=== PATIENT | female | born 1990 | race Caucasian/White ===

== ENCOUNTER 2018-03-08 09:10 | Emergency (ER) | payer OTHER ==
[~2018-03-08] VITALS: Ht 165.1 cm; Wt 68.5 kg
[~2018-03-08 09:10] MED LIST: ANAPROX DS550 MG PO; BENTYL10 MG PO; CELEXA10 MG PO; CELEXA20 MG PO; CIPROFLOXACIN500 MG PO; DURICEF500 MG PO; FLEXERIL10 MG PO; HYDROCODONE BIT1 T11 PO; IBUPROFEN 30 M800 MG PO; NAPROSYN500 MG PO; PNV-SELECT1 TAB PO; PRENATAL1 TA1 PO; SERTRALINE HYDR50 MG PO; ULTRAM50 MG PO; WELLBUTRIN100 MG PO; ZOFRAN ODT4 MG SL
[2018-03-08] MEDS ORDERED: CLARITIN10 MG PO (09:25)
[2018-03-08] MEDS ORDERED: PREDNISONE10 MG PO (09:25)
[2018-03-08] MEDS ORDERED: FLONASE ALLERG9.9 ML NAS (09:25)
[2018-03-08] MEDS ORDERED: OMNICEF300 MG PO (09:53)
== END 2018-03-08 10:40 | disposition home or self-care (01) ==
LOC: ED 09:10
DX: J02.9 Acute pharyngitis, unspecified (principal); R03.0 Elevated blood-pressure reading, without diagnosis of hypertension; Z88.0 Allergy status to penicillin

== ENCOUNTER 2019-01-14 13:03 | Emergency (ER) | payer SELFPAY ==
[~2019-01-14] VITALS: Ht 165.1 cm; Wt 75.3 kg
[~2019-01-14 13:03] MED LIST changes: +CLARITIN10 MG PO; +FLONASE ALLERG9.9 ML NAS; +OMNICEF300 MG PO; +PREDNISONE10 MG PO
[2019-01-14 13:33] LABS: BILIRUBIN NEGATIVE (NEGATIVE); BLOOD NEGATIVE (NEGATIVE); CLARITY CLEAR (CLEAR); COLOR YELLOW (YELLOW); GLUCOSE NEGATIVE (NEGATIVE); KETONE NEGATIVE (NEGATIVE); LEUKO ESTERASE 1+ (NEGATIVE); NITRITE NEGATIVE (NEGATIVE); PH 7.5 (5.0-9.0); SPECIFIC GRAVITY <= 1.005 (1.005-1.030); UROBILINOGEN 0.2 E.U./dl (0.2-1.0)
[2019-01-14 13:37] LABS: BASO % 0.5 % (0.0-1.0); EOS # 0.1 10*3/uL (0.0-0.4); EOS % 0.9 % (1.0-4.0); HEMATOCRIT 42.6 % (37.0-47.0); HEMOGLOBIN 14.2 g/dl (12.0-16.0); LYMPH # 1.3 10*3/uL (1.3-4.4); LYMPH % 14.6 % (27.0-41.0); MEAN CELL VOLUME 90.4 fl (81.0-99.0); MEAN CORPUSCULAR HGB 30.1 pg (27.0-31.0); MEAN CORPUSCULAR HGB CONC 33.3 g/dl (33.0-37.0); MEAN PLATELET VOLUME 9.7 fl (9.6-12.3); MONO # 0.5 10*3/uL (0.1-1.0); MONO % 6.1 % (3.0-9.0); NEUT # 6.8 10*3/uL (2.3-7.9); NEUT % 77.7 % (47.0-73.0); PLATELET COUNT AUTOMATED 317 10*3/uL (130-400); RED BLOOD COUNT 4.71 10*6/uL (4.10-5.10); RED CELL DISTRI WIDTH 13.3 % (0-14.5); WHITE BLOOD COUNT 8.7 10*3/uL (4.8-10.8)
[2019-01-14 13:51] LABS: ALBUMIN 4.2 gm/dl (3.1-4.5); ALKALINE PHOSPHATASE 182 U/L (45-117); BUN 7 mg/dl (7-24); CHLORIDE 105 mmol/L (98-107); CREATININE 0.89 mg/dL (0.55-1.02); POTASSIUM 3.7 mmol/L (3.5-5.1); SGOT/AST 34 IU/L (3-35); SGPT/ALT 66 U/L (12-78); SODIUM 139 mmol/L (136-145); TOTAL PROTEIN 7.6 gm/dL (6.4-8.2)
[2019-01-14 13:53] LABS: BETA-HCG, QUANT < 1.0 mIU/mL (1-3)
[2019-01-14 14:03] LABS: BACTERIA 1+; WBC 21-30 wbc/hpf (0-5)
[2019-01-14] MEDS ORDERED: MACROBID100 M1 PO (16:35)
[2019-01-14] MEDS ORDERED: DIFLUCAN150 MG PO (16:35)
== END 2019-01-14 16:57 | disposition home or self-care (01) ==
LOC: ED 13:03
PROVIDERS: Nurse Practitioner Family
DX: N39.0 Urinary tract infection, site not specified (principal); N93.8 Other specified abnormal uterine and vaginal bleeding; B37.3 Candidiasis of vulva and vagina; Z88.0 Allergy status to penicillin; Z88.2 Allergy status to sulfonamides

== ENCOUNTER 2019-06-03 00:10 | Inpatient (IN) | payer OTHER, MEDICAID ==
[2019-06-03] VITALS (7 sets, daily range): BP systolic 114–132; BP diastolic 56–88
[~2019-06-03] VITALS: Ht 167.6 cm; Wt 72.3 kg
[~2019-06-03 00:10] MED LIST changes: +DIFLUCAN150 MG PO; +MACROBID100 M1 PO
[2019-06-03 01:04] LABS: BASO # 0.1 10*3/uL (0.0-0.1); BASO % 0.5 % (0.0-1.0); EOS # 0.2 10*3/uL (0.0-0.4); HEMATOCRIT 42.6 % (37.0-47.0); HEMOGLOBIN 14.2 g/dl (12.0-16.0); LYMPH % 10.3 % (27.0-41.0); MEAN CELL VOLUME 92.8 fl (81.0-99.0); MEAN CORPUSCULAR HGB 30.9 pg (27.0-31.0); MEAN CORPUSCULAR HGB CONC 33.3 g/dl (33.0-37.0); MEAN PLATELET VOLUME 10.4 fl (9.6-12.3); MONO # 0.4 10*3/uL (0.1-1.0); MONO % 2.2 % (3.0-9.0); NEUT # 16.7 10*3/uL (2.3-7.9); NEUT % 85.3 % (47.0-73.0); PLATELET COUNT AUTOMATED 447 10*3/uL (130-400); RED BLOOD COUNT 4.59 10*6/uL (4.10-5.10); WHITE BLOOD COUNT 19.6 10*3/uL (4.8-10.8)
[2019-06-03 01:21] LABS: ALBUMIN 4.1 gm/dl (3.1-4.5); ALKALINE PHOSPHATASE 129 U/L (45-117); BUN 10 mg/dl (7-24); CHLORIDE 103 mmol/L (98-107); POTASSIUM 3.7 mmol/L (3.5-5.1); SGOT/AST 16 IU/L (3-35); SGPT/ALT 18 U/L (12-78); SODIUM 136 mmol/L (136-145); TOTAL PROTEIN 7.8 gm/dL (6.4-8.2)
[2019-06-03 04:22] LABS: BILIRUBIN NEGATIVE (NEGATIVE); BLOOD 3+ (NEGATIVE); CLARITY SL CLOUDY (CLEAR); COLOR YELLOW (YELLOW); GLUCOSE NEGATIVE (NEGATIVE); KETONE 2+ (NEGATIVE); LEUKO ESTERASE 3+ (NEGATIVE); NITRITE NEGATIVE (NEGATIVE); SPECIFIC GRAVITY <= 1.005 (1.005-1.030); UROBILINOGEN 0.2 E.U./dl (0.2-1.0)
[2019-06-03 04:29] LABS: EPITHELIAL CELLS 25-30
[2019-06-03 04:30] LABS: BACTERIA 1+; RBC 21-30 rbc/hpf (0-2); WBC 21-30 wbc/hpf (0-5)
[2019-06-03 04:32] LABS: URINE AMPHETAMINES < 1000 (1000ng/ml); URINE BARBITURATES < 200 (200ng/ml); URINE BENZODIAZEPINES < 200 (200ng/ml); URINE CANNABINOIDS (THC) < 50 (50ng/ml); URINE COCAINE < 300 (300ng/ml); URINE METHADONE < 300 (300ng/ml); URINE OPIATES < 300 (300ng/ml); URINE PHENCYCLIDINE < 25 (25ng/ml)
--- NOTE | 2019-06-03 05:20 | NUR ---
Time: 519 A 29 year old FEMALE admitted to 4E under services of KIMBERLY MÉNDEZ DO, Pt. arrived via stretcher from ER. Chief complaint: NAUSEA VOMITING DIARRHEA. ADELINE RODRIGUEZ
[2019-06-03] MEDS ORDERED: CITALOPRAM20 MG PO (05:30)
[2019-06-03] MEDS ORDERED: CITALOPRAM HYDR40 MG PO (05:30)
[2019-06-03] MEDS ORDERED: DEXTROAMPH SACC20 M1 PO (05:31)
[2019-06-03] MEDS ORDERED: AMLODIPINE BESYL5 MG PO (05:32)
--- NOTE | 2019-06-03 05:38 | NUR ---
HOME MEDS REVIWED WITH THE PATIENT.
--- NOTE | 2019-06-03 09:00 | NUR ---
Stone Polisher Hand in to talk to patient. Patient states lives at home with . There are few steps in the home. Physician: gaston lawson Pharmacy: [facility] Home health services: none Patient's level of ADLs: INDEPENDENT Patient has working utilities: all working DME: none Follow-up physician's appointment after d/c: will be made by hospitalist nurse director upon discharge Does patient want to access PORTAL?: no Discharge plan discussed with patient, she states she lives at home with her , she is independent in adls and ambulation, she states she will return home when medically stable and denies any home needs. JAYDEN COLLINS
--- NOTE | 2019-06-03 11:21 | NUR ---
TYLENOL GIVEN FOR C/O SORE THROAT. WILL MONITOR.
--- NOTE | 2019-06-03 12:15 | NUR ---
TYLENOL EFFECTIVE PER PT.
--- NOTE | 2019-06-03 19:30 | NUR ---
Patient resting quietly with no c/o discomfort. Respirations easy and regular. Vital signs stable. No overt distress. BERTIN FERRIS
[2019-06-04] VITALS: BP 122/86
--- NOTE | 2019-06-04 02:07 | NUR ---
24 HR chart check completed.
[2019-06-04 06:16] LABS: BUN 4 mg/dl (7-24); CHLORIDE 107 mmol/L (98-107); CREATININE 0.63 mg/dL (0.55-1.02); POTASSIUM 3.1 mmol/L (3.5-5.1); SODIUM 140 mmol/L (136-145)
[2019-06-04 06:22] LABS: CHOLESTEROL 92 mg/dL (<200); HDL CHOLESTEROL 53 mg/dl (40-60); LDL CHOLESTEROL 22 mg/dL (9-159); PHOSPHOROUS 3.7 mg/dL (2.5-4.9); TRIGLYCERIDES 84 mg/dl (<150); VLDL CHOLESTEROL 17 mg/dL (6-40)
[2019-06-04 06:34] LABS: BASO # 0.1 10*3/uL (0.0-0.1); BASO % 0.8 % (0.0-1.0); EOS # 0.2 10*3/uL (0.0-0.4); EOS % 3.3 % (1.0-4.0); HEMATOCRIT 38.4 % (37.0-47.0); HEMOGLOBIN 12.6 g/dl (12.0-16.0); LYMPH # 1.9 10*3/uL (1.3-4.4); LYMPH % 26.7 % (27.0-41.0); MEAN CELL VOLUME 92.3 fl (81.0-99.0); MEAN CORPUSCULAR HGB 30.3 pg (27.0-31.0); MEAN CORPUSCULAR HGB CONC 32.8 g/dl (33.0-37.0); MEAN PLATELET VOLUME 10.8 fl (9.6-12.3); MONO # 0.4 10*3/uL (0.1-1.0); MONO % 5.8 % (3.0-9.0); NEUT # 4.5 10*3/uL (2.3-7.9); NEUT % 63.1 % (47.0-73.0); RED BLOOD COUNT 4.16 10*6/uL (4.10-5.10); RED CELL DISTRI WIDTH 12.1 % (0-14.5); WHITE BLOOD COUNT 7.2 10*3/uL (4.8-10.8)
[2019-06-04 06:35] LABS: PLATELET COUNT AUTOMATED 309 10*3/uL (130-400)
[2019-06-04 06:38] LABS: INTERNATIONAL NORM RATIO 0.9 (2.0-3.5)
[2019-06-04 08:00] VITALS: BP 123/86
--- NOTE | 2019-06-04 09:00 | NUR ---
case management visits with patient, she states she will be returning to home possibly tomorrow and denies any home needs, case management will follow
--- NOTE | 2019-06-04 09:49 | NUR ---
PATIENT TAKEN DOWN FOR SCHEDULED PROCEDURE.
--- NOTE | 2019-06-04 11:25 | NUR ---
PT MEDICATED WITH PO TYLENOL PER PRN ORDER FOR C/O RIGHT FLANK PAIN. RATES PAIN 5/10. WILL MONITOR EFFECTIVENESS. IVF INITIATED PER ORDER. SCHEDULED 10AM MEDS ADMINISTERED AT THIS TIME. WILL CONTINUE TO MONITOR.
[2019-06-04 12:00] VITALS: BP 133/88
--- NOTE | 2019-06-04 12:30 | NUR ---
TYLENOL RELIEVING PAIN PER PT. WILL CONTINUE TO MONITOR.
--- NOTE | 2019-06-04 15:12 | NUR ---
PT MEDICATED WITH PO TYLENOL PER PRN ORDER FOR C/O RIGHT FLANK PAIN. RATES PAIN 01/20. WILL MONITOR EFFECTIVENESS.
[2019-06-04 16:00] VITALS: BP 144/86
--- NOTE | 2019-06-04 18:28 | NUR ---
Discharge instructions reviewed with patient/family. Patient receptive and verbalizes understanding. Follow-up care arranged. Written instructions given to patient/family. MICHAEL KEITH.
--- NOTE | 2019-06-04 18:29 | NUR ---
msPatient signed out AMA. Patient encouraged to stay and advised of possible consequences of premature discharge. Physician and day habilitation supervisor ROBERT notified. Patient instructed what to do regarding care post-departure from the hospital; emergency phone numbers provided. Patent was accompanied by SELF. MICHAEL KEITH
== END 2019-06-04 18:52 | disposition left against medical advice (07) | DRG 871 ==
LOC: ED 00:10 → EDHOLD 04:50 → 4E 04:50
PROVIDERS: Emergency Medicine; Internal Medicine; Student in an Organized Health Care Education/Training Program; ADMIT Internal Medicine
DX: A41.9 Sepsis, unspecified organism (principal); N17.0 Acute kidney failure with tubular necrosis; N30.00 Acute cystitis without hematuria; E87.2 Acidosis; E86.0 Dehydration; R65.20 Severe sepsis without septic shock; E66.3 Overweight; F32.9 Major depressive disorder, single episode, unspecified; I10 Essential (primary) hypertension; F90.9 Attention-deficit hyperactivity disorder, unspecified type; D47.3 Essential (hemorrhagic) thrombocythemia; G44.201 Tension-type headache, unspecified, intractable; N20.0 Calculus of kidney; Z53.29 Procedure and treatment not carried out because of patient's decision for other reasons; Z88.0 Allergy status to penicillin; Z88.2 Allergy status to sulfonamides; Z79.899 Other long term (current) drug therapy; Z87.440 Personal history of urinary (tract) infections; Z90.49 Acquired absence of other specified parts of digestive tract; Z82.49 Family history of ischemic heart disease and other diseases of the circulatory system; Z68.26 Body mass index [BMI] 26.0-26.9, adult

== ENCOUNTER → 2020-02-05 | Outpatient (CLI) | payer OTHER ==
[~2020-02-05] MED LIST changes: +AMLODIPINE BESYL5 MG PO; +CITALOPRAM HYDR40 MG PO; +CITALOPRAM20 MG PO; +DEXTROAMPH SACC20 M1 PO
== END | disposition home or self-care (01) ==
LOC: US 09:57
DX: N83.202 Unspecified ovarian cyst, left side (principal); Z97.5 Presence of (intrauterine) contraceptive device

== ENCOUNTER → 2021-06-09 | Outpatient (CLI) | payer OTHER | END | disposition home or self-care (01) | LOC: RAD 09:31 | PROVIDERS: ATTEND Nurse Practitioner Family | DX: J18.9 Pneumonia, unspecified organism (principal); R05.9 Cough, unspecified; R09.81 Nasal congestion ==

== ENCOUNTER 2022-01-18 13:52 | Emergency (ER) | payer OTHER ==
[~2022-01-18] VITALS: Wt 77.1 kg
[2022-01-18 15:08] LABS: BASO # 0.1 10*3/uL (0.0-0.1); BASO % 0.3 % (0.0-1.0); EOS % 0.1 % (1.0-4.0); HEMATOCRIT 45.6 % (37.0-47.0); LYMPH # 1.6 10*3/uL (1.3-4.4); LYMPH % 10.2 % (27.0-41.0); MEAN CELL VOLUME 84.3 fl (81.0-99.0); MEAN CORPUSCULAR HGB 29.6 pg (27.0-31.0); MEAN CORPUSCULAR HGB CONC 35.1 g/dl (33.0-37.0); MEAN PLATELET VOLUME 9.7 fl (9.6-12.3); MONO # 0.8 10*3/uL (0.1-1.0); MONO % 5.3 % (3.0-9.0); NEUT # 13.1 10*3/uL (2.3-7.9); NEUT % 83.7 % (47.0-73.0); PLATELET COUNT AUTOMATED 348 10*3/uL (130-400); RED BLOOD COUNT 5.41 10*6/uL (4.10-5.10); RED CELL DISTRI WIDTH 11.9 % (0-14.5); WHITE BLOOD COUNT 15.6 10*3/uL (4.8-10.8)
[2022-01-18 15:22] LABS: BILIRUBIN Negative (Negative); BLOOD Negative (Negative); CLARITY Cloudy (Clear); COLOR Yellow (Yellow); GLUCOSE Negative (Negative); KETONE Negative (Negative); LEUKO ESTERASE 1+ (Negative); NITRITE Negative (Negative); SPECIFIC GRAVITY 1.015 (1.001-1.030); UROBILINOGEN 0.2 E.U./dl (0.0-1.0)
[2022-01-18 15:25] LABS: ALKALINE PHOSPHATASE 105 U/L (45-117); BUN 12 mg/dl (7-24); CHLORIDE 100 mmol/L (98-107); POTASSIUM 3.2 mmol/L (3.5-5.1); SGOT/AST 11 IU/L (3-35); SGPT/ALT 19 U/L (12-78); SODIUM 136 mmol/L (136-145); TOTAL PROTEIN 7.6 gm/dL (6.4-8.2)
[2022-01-18 15:30] LABS: BACTERIA 4+; WBC 16-20 wbc/hpf (0-5)
[2022-01-18] MEDS ORDERED: ZOFRAN4 MG PO (17:37)
[2022-01-18] MEDS ORDERED: MACROBID100 M1 PO (17:37)
[2022-01-18] MEDS ORDERED: PYRIDIUM200 M1 PO (17:37)
== END 2022-01-18 17:53 | disposition home or self-care (01) ==
LOC: ED 13:52
PROVIDERS: Emergency Medicine
DX: N39.0 Urinary tract infection, site not specified (principal); Z88.0 Allergy status to penicillin; Z88.2 Allergy status to sulfonamides; Z79.899 Other long term (current) drug therapy; Z90.49 Acquired absence of other specified parts of digestive tract; Z98.890 Other specified postprocedural states; Z90.89 Acquired absence of other organs

== ENCOUNTER 2022-04-29 23:07 | Emergency (ER) | payer OTHER ==
[~2022-04-29] VITALS: Ht 172.7 cm; Wt 75.3 kg
[~2022-04-29 23:07] MED LIST changes: +PYRIDIUM200 M1 PO; +ZOFRAN4 MG PO
[2022-04-30 00:24] LABS: URINE AMPHETAMINES > 1000 (1000ng/ml); URINE BARBITURATES < 200 (200ng/ml); URINE BENZODIAZEPINES < 200 (200ng/ml); URINE CANNABINOIDS (THC) > 50 (50ng/ml); URINE COCAINE < 300 (300ng/ml); URINE METHADONE < 300 (300ng/ml); URINE OPIATES < 300 (300ng/ml)
[2022-04-30 00:29] LABS: URINE PHENCYCLIDINE < 25 (25ng/ml)
[2022-04-30 00:35] LABS: BILIRUBIN Negative (Negative); BLOOD Negative (Negative); CLARITY Clear (Clear); COLOR Yellow (Yellow); GLUCOSE Negative (Negative); KETONE 2+ (Negative); LEUKO ESTERASE Trace (Negative); NITRITE Negative (Negative); PH 5.5 (4.5-8.0); UROBILINOGEN 0.2 E.U./dl (0.0-1.0)
[2022-04-30 00:43] LABS: BACTERIA 2+
[2022-04-30 01:00] LABS: BASO # 0.1 10*3/uL (0.0-0.1); BASO % 0.7 % (0.0-1.0); EOS % 0.3 % (1.0-4.0); HEMATOCRIT 40.3 % (37.0-47.0); LYMPH # 1.5 10*3/uL (1.3-4.4); LYMPH % 14.9 % (27.0-41.0); MEAN CELL VOLUME 84.3 fl (81.0-99.0); MEAN CORPUSCULAR HGB 29.3 pg (27.0-31.0); MEAN CORPUSCULAR HGB CONC 34.7 g/dl (33.0-37.0); MEAN PLATELET VOLUME 10.8 fl (9.6-12.3); MONO # 0.5 10*3/uL (0.1-1.0); MONO % 4.9 % (3.0-9.0); PLATELET COUNT AUTOMATED 333 10*3/uL (130-400); RED BLOOD COUNT 4.78 10*6/uL (4.10-5.10); RED CELL DISTRI WIDTH 12.7 % (0-14.5); WHITE BLOOD COUNT 10.1 10*3/uL (4.8-10.8)
[2022-04-30 01:16] LABS: ALKALINE PHOSPHATASE 103 U/L (45-117); BUN 8 mg/dl (7-24); CHLORIDE 108 mmol/L (98-107); CREATININE 0.85 mg/dL (0.55-1.02); POTASSIUM 3.2 mmol/L (3.5-5.1); SGOT/AST 14 IU/L (3-35); SGPT/ALT 16 U/L (12-78); SODIUM 142 mmol/L (136-145); TOTAL PROTEIN 7.3 gm/dL (6.4-8.2)
[2022-04-30 01:18] LABS: ACETAMINOPHEN (TYLENOL) < 5.0 ug/ml (10-30); ETHYL ALCOHOL < 3.0 mg/dl (<3)
[2022-04-30 01:24] LABS: THYROID STIM HORMONE (HS) 0.624 uIU/ml (0.358-4.75)
== END 2022-04-30 17:53 ==
LOC: ED 23:07
PROVIDERS: Emergency Medicine
DX: F31.9 Bipolar disorder, unspecified (principal); Z20.822 Contact with and (suspected) exposure to COVID-19; I10 Essential (primary) hypertension; Z88.0 Allergy status to penicillin; Z88.2 Allergy status to sulfonamides; Z79.899 Other long term (current) drug therapy; Z90.49 Acquired absence of other specified parts of digestive tract; Z98.890 Other specified postprocedural states; Z90.89 Acquired absence of other organs

== ENCOUNTER 2025-01-26 10:59 | Emergency (ER) | payer MEDICAID ==
[~2025-01-26] VITALS: Ht 170.1 cm; Wt 72.6 kg
[~2025-01-26 10:59] MED LIST changes: +POTASSIUM CHLO20 ME3 PO
[2025-01-26 11:46] LABS: BASO # 0.1 10*3/uL (0.0-0.1); BASO % 0.6 % (0.0-1.0); EOS % 0.2 % (1.0-4.0); HEMATOCRIT 45.8 % (37.0-47.0); MEAN CORPUSCULAR HGB 30.6 pg (27.0-31.0); MEAN CORPUSCULAR HGB CONC 34.1 g/dl (33.0-37.0); MEAN PLATELET VOLUME 10.2 fl (9.6-12.3); MONO # 0.6 10*3/uL (0.1-1.0); MONO % 5.6 % (3.0-9.0); NEUT # 8.9 10*3/uL (2.3-7.9); NEUT % 85.9 % (47.0-73.0); PLATELET COUNT AUTOMATED 299 10*3/uL (130-400); RED BLOOD COUNT 5.09 10*6/uL (4.10-5.10); RED CELL DISTRI WIDTH 12.4 % (0-14.5); WHITE BLOOD COUNT 10.3 10*3/uL (4.8-10.8)
[2025-01-26 12:06] LABS: ALKALINE PHOSPHATASE 100 U/L (46-116); BUN 8 mg/dl (9-23); CHLORIDE 102 mmol/L (98-107); POTASSIUM 3.3 mmol/L (3.4-5.1); SGPT/ALT 13 U/L (5-49); TOTAL PROTEIN 7.6 gm/dL (6.0-8.0)
[2025-01-26 12:08] LABS: ETHYL ALCOHOL < 3.0 mg/dl (<3)
[2025-01-26 12:13] LABS: BILIRUBIN Negative (Negative); BLOOD Trace-Lysed (Negative); CLARITY Cloudy (Clear); COLOR Yellow (Yellow); GLUCOSE Negative (Negative); KETONE 2+ (Negative); LEUKO ESTERASE 1+ (Negative); NITRITE Positive (Negative); PH 5.5 (4.5-8.0); SPECIFIC GRAVITY 1.015 (1.001-1.030)
[2025-01-26 12:22] LABS: URINE AMPHETAMINES Positive (1000ng/ml); URINE BARBITURATES Negative (200ng/ml); URINE BENZODIAZEPINES Negative (200ng/ml); URINE CANNABINOIDS (THC) Positive (50ng/ml); URINE COCAINE Negative (300ng/ml); URINE METHADONE Negative (300ng/ml); URINE OPIATES Negative (300ng/ml); URINE PHENCYCLIDINE Negative (25ng/ml)
[2025-01-26 12:26] LABS: BACTERIA 4+
[2025-01-26] MEDS ORDERED: POTASSIUM CHLORIDE 20 MEQ TAB PO ONE (13:40)
[2025-01-26] MEDS ORDERED: ACETAMINOPHEN 325 MG TAB PO ONE (16:20)
== END 2025-01-26 18:20 ==
LOC: ED 10:59
PROVIDERS: Internal Medicine
DX: F31.9 Bipolar disorder, unspecified (principal); I10 Essential (primary) hypertension; Z79.899 Other long term (current) drug therapy; Z88.0 Allergy status to penicillin; Z88.2 Allergy status to sulfonamides; Z88.8 Allergy status to other drugs, medicaments and biological substances; Z90.49 Acquired absence of other specified parts of digestive tract; Z98.890 Other specified postprocedural states

== ENCOUNTER → 2025-06-22 | Outpatient (CLI) | payer MEDICAID ==
[2025-06-22 11:52] LABS: VITAMIN D, 25-HYDROXY 31.4 ng/mL (30-100)
== END | disposition home or self-care (01) ==
LOC: LAB 10:02
DX: E61.1 Iron deficiency (principal); E53.9 Vitamin B deficiency, unspecified; E55.9 Vitamin D deficiency, unspecified; R53.83 Other fatigue